=== PATIENT | female | born 1955 | race Caucasian/White ===

== ENCOUNTER 2017-10-19 17:48 | Emergency (ER) | payer OTHER ==
[2017-10-19 18:02] LABS: ADD MAN DIFF? NO
[2017-10-19 18:08] LABS: WHITE BLOOD COUNT 5.5 10^3/ul (4.8-10.8)
[2017-10-19 18:08] LABS: BASOPHILS % 0.2 % (0.0-2.0); EOSINOPHILS # 0.1 10^3/ul (0.0-0.5); EOSINOPHILS % 1.5 % (0.0-7.0); HEMATOCRIT 36.8 % (37.0-47.0); HEMOGLOBIN 11.9 g/dl (12.0-16.0); LYMPHOCYTES # 2.2 10^3/ul (0.8-2.9); LYMPHOCYTES % 39.8 % (15.0-51.0); MEAN CORPUSCULAR HEMOGLOBIN 26.2 pg (29.0-33.0); MEAN CORPUSCULAR HGB CONC 32.3 g/dl (32.0-37.0); MEAN CORPUSCULAR VOLUME 81.1 fl (82.0-101.0); MONOCYTE # 0.5 10^3/ul (0.3-0.9); MONOCYTES % 9.1 % (0.0-11.0); NEUTROPHIL # 2.7 10^3/ul (1.6-7.5); NEUTROPHILS % 49.2 % (39.0-77.0); PLATELET COUNT 232 10^3/UL (140-415); RED BLOOD COUNT 4.54 10^6/ul (4.20-5.40); RED CELL DISTRIBUTION WIDTH 12.5 % (11.5-14.5)
[2017-10-19] MEDS: SOD CHLORIDE 0.9% 1,000 ML IV (18:10)
[2017-10-19 18:25] LABS: ALANINE AMINOTRANSFERASE 73 IU/L (13-69); ALBUMIN 4.2 g/dl (3.3-4.9); ALBUMIN/GLOBULIN RATIO 1.13; ALKALINE PHOSPHATASE 59 IU/L (42-121); ANION GAP 15 (8-16); ASPARTATE AMINO TRANSFERASE 58 IU/L (15-46); BILIRUBIN,INDIRECT 0.4 mg/dl (0-1.1); BILIRUBIN,TOTAL 0.4 mg/dl (0.2-1.3); BLOOD UREA NITROGEN 8 mg/dl (7-20); CALCIUM 9.4 mg/dl (8.4-10.2); CARBON DIOXIDE 26 mmol/L (21-31); CHLORIDE 106 mmol/L (97-110); CREATININE 0.68 mg/dl (0.44-1.00); GLUCOSE 95 mg/dl (70-220); LIPASE 81 U/L (23-300); POTASSIUM 4.1 mmol/L (3.5-5.1); SODIUM 143 mmol/L (135-144); TOTAL PROTEIN 7.9 g/dl (6.1-8.1)
[2017-10-19] MEDS: DICYCLOMINE 10 MG CAP PO (18:44)
[2017-10-19] MEDS: ONDANSETRON 4 MG INJ IV (18:44)
[2017-10-19] MEDS: KETOROLAC 15 MG INJ IV (18:45)
== END 2017-10-19 19:15 | disposition home or self-care (01) ==
LOC: E/R 17:48
DX: E86.0 Dehydration (principal); R19.7 Diarrhea, unspecified; R40.2142 Coma scale, eyes open, spontaneous, at arrival to emergency department; R40.2362 Coma scale, best motor response, obeys commands, at arrival to emergency department; R40.2252 Coma scale, best verbal response, oriented, at arrival to emergency department; I10 Essential (primary) hypertension
CPT/HCPCS: 36415; 80053; 83690; 85025; 96374; 96375; 99284-25

== ENCOUNTER 2018-04-14 09:46 | Day surgery (SDC) | payer OTHER ==
[2018-04-14] MEDS ORDERED: PROPOFOL 20 ML (11:14)
[2018-04-14] MEDS ORDERED: LIDOCAINE 2% (SDV) 5 ML INJ (11:14)
[2018-04-14] MEDS ORDERED: FENTAnyl 50 MCG/ML VIAL (11:14)
[2018-04-14] MEDS ORDERED: MIDAZOLAM 1 MG/ML 2 ML INJ (11:14)
[2018-04-14] MEDS ORDERED: ETOMIDATE 20 MG INJ (11:15)
== END 2018-04-14 12:52 | disposition home or self-care (01) ==
LOC: GIL 09:46
DX: Z12.11 Encounter for screening for malignant neoplasm of colon (principal); K64.8 Other hemorrhoids; K57.30 Diverticulosis of large intestine without perforation or abscess without bleeding; K44.9 Diaphragmatic hernia without obstruction or gangrene; K21.9 Gastro-esophageal reflux disease without esophagitis
CPT/HCPCS: 43239; 88305; 88312